=== PATIENT | female | born 1940 | race Caucasian/White ===

== ENCOUNTER 2016-05-12 21:36 | Inpatient (IN) | payer MEDICAID, OTHER ==
[~2016-05-12] VITALS: Ht 152.4 cm; Wt 49.9 kg
[~2016-05-12 21:36] MED LIST: AUGMENTIN 875 M1 TAB PO; FLORASTOR250 MG PO; LEVAQUIN250 MG PO; PREDNISONE20 MG PO
[2016-05-12 21:37] VITALS: BP 148/85
--- NOTE | 2016-05-12 22:45 | NUR ---
TO ER BED 6
--- NOTE | 2016-05-12 22:50 | NUR ---
75/F BIB FAMILY C/O BACK PAIN x TODAY. PT HAS CHRONIC COUGH 2 MONTHS. FAMILY AT BEDSIDE, NIUEAN SPEAKER. DENIES N/V/D; SKIN IS PINK/WARM/DRY; AAOX4 WITH EVEN AND STEADY GAIT; HR EVEN AND REGULAR; PT DENIES ANY FEVER, CP, SOB; PATIENT STATES PAIN OF 10/10 AT THIS TIME; VSS; PATIENT POSITIONED FOR COMFORT; HOB ELEVATED; BEDRAILS UP X2; BED DOWN. ER MD MADE AWARE OF PT STATUS.
--- NOTE | 2016-05-12 23:12 | NUR ---
Patient being evaluated by physician at bedside.
[2016-05-12] MEDS ORDERED: NACL 0.9% 1,000 ML IV ONE ×2 (23:28)
[2016-05-12] MEDS ORDERED: LEVOFLOXACIN 750 MG/D5W PREMIX 150 ML IV ONE (23:45)
--- NOTE | 2016-05-13 00:20 | NUR ---
Patient will be admitted to care of DR. ADAMS. Admited to TELE. Will go to room 119B. Belongings list completed. Report to TRISTAN GUTHRIE.
[2016-05-13] MEDS ORDERED: MORPHINE SULFATE 2 MG/ML SYR IVP PRN (00:25)
[2016-05-13] MEDS ORDERED: ACETAMINOPHEN 325 MG TAB PO PRN (00:25)
[2016-05-13] MEDS ORDERED: ONDANSETRON 4 MG/2 ML VIAL IVP PRN (00:25)
[2016-05-13 00:30] VITALS: BP 128/75
[2016-05-13] MEDS: NACL 0.9% 1,000 ML IV SCH ×2 (00:30→12:09)
[2016-05-13] MEDS ORDERED: ALBUTEROL 0.083% 2.5 MG/3 ML NEBU INH PRN (00:30)
--- NOTE | 2016-05-13 00:30 | NUR ---
Admitted from ER TO TELEMETRY UNIT , with chief complaint of BACK PAIN AND COUGH FOR TWO MONTHS , 75 y/o ,Female, Cooperative, A/OX4. RESPIRATION EVEN AND UNLABORED, WITH RHONCHI ON BILATERAL LUNG AUSCULTATION. PRODUCTIVE COUGHING, CLAIMED WITH YELLOW AND WHILE PHLEGM. HEAD TO TOE ASSESSMENT DONE WITH CHARGE NURSE ABIODUN, SKIN INTACT. PLAN OF CARE DISCUSSED WITH PATIENT AND FAMILY, VERBALIZED UNDERSTANDING. SAFETY MEASURES ENFORCED.WITH ON AND OFF BACK PAIN 07/11, WILL MEDICATE ORDERED.oriented to call light, bed, phone,television, bathroom, smoking policy,visiting hours, procedures, ID bracelet on. Belongings list checked.
[2016-05-13] MEDS: ALBUTEROL 0.083% 2.5 MG/3 ML NEBU INH SCH ×4 (01:00→19:17)
[2016-05-13] MEDS ORDERED: CLINDAMYCIN 600 MG in DEXTROSE 5% 50 ML IV SCH ×2 (01:30→06:00)
[2016-05-13] MEDS: HYDROcodone/APAP 7.5/325 MG 1 TAB PO PRN ×2 (01:50→14:54)
[2016-05-13] MEDS ORDERED: CLINDAMYCIN 600 MG/4 ML VIAL ONE ×2 (02:06→06:22)
--- NOTE | 2016-05-13 03:30 | NUR ---
APPLIED BILATERAL LEG SEQUENTIALS.
[2016-05-13 04:00] VITALS: BP 90/51
--- NOTE | 2016-05-13 04:25 | NUR ---
SPUTUM COUGH GIVEN WITH INSTRUCTION TO COUGH OUT PHLEGM FOR SPUTUM CULTURE TO BE SENT TO LAB. VERBALIZED UNDERSTANDING.
--- NOTE | 2016-05-13 07:15 | NUR ---
CONDITION REMAIN STABLE. NO SOB NOTED DURING SHIFT. SAFETY MAINTAINED. ENDORSED TO MIRIAM DICKSON FOR CONTINUITY OF CARE.
--- NOTE | 2016-05-13 07:17 | NUR ---
RECEIVED REPORT FROM NIGHT RN. PT RESTING IN BED. NO S/S OF ACUTE DISTRESS. AAOX4. PT DENIES PAIN. IV SITE PATENT AND INTACT. PT ON O2 2L NC. CALL LIGHT WITHIN REACH. SAFETY MEASURES ENSURED. RT AT BEDSIDE. WILL CONTINUE TO MONITOR.
[2016-05-13 07:50] VITALS: BP 95/54
--- NOTE | 2016-05-13 08:34 | NUR ---
PATIENT HAS BEEN SCREENED AND CATEGORIZED MODERATE NUTRITION RISK. PATIENT WILL BE SEEN WITHIN 3-5 DAYS OF ADMISSION. 05/15/16-05/17/[address]
[2016-05-13] MEDS ORDERED: FAMOTIDINE 20 MG TAB PO SCH (09:00)
[2016-05-13] MEDS: DOCUSATE SODIUM 100 MG GELCAP PO SCH (09:10)
[2016-05-13] MEDS: SACCHAROMYCES 250 MG CAP PO SCH ×2 (09:11→21:00)
--- NOTE | 2016-05-13 09:52 | NUR ---
PT RESTING IN BED. NO S/S OF ACUTE DISTRESS. PT DENIES PAIN. ON O2 2L NC. CALL LIGHT WITHIN REACH. SAFETY MEASURES ENSURED. WILL CONTINUE TO MONITOR.
[2016-05-13 12:00] VITALS: BP 100/56
[2016-05-13] MEDS: PIPER/TAZO 3.375GM/D5W PREMIX 50 ML IV SCH ×2 (12:11→20:32)
--- NOTE | 2016-05-13 12:18 | NUR ---
PT SITTING UP EATING. NO S/S OF ACUTE DISTRESS. PT DENIES PAIN. CALL LIGHT WITHIN REACH. SAFETY MEASURES ENSURED. WILL CONTINUE TO MONITOR.
--- NOTE | 2016-05-13 14:02 | NUR ---
PT RESTING IN BED. NO S/S OF ACUTE DISTRESS. PT DENIES PAIN/ FAMILY AT BEDSIDE. CALL LIGHT WITHIN REACH. WILL CONTINUE TO MONITOR.
[2016-05-13] MEDS ORDERED: MAG SULF 2000 MG/WATER PREMIX 50 ML IV SCH (15:00)
[2016-05-13 16:00] VITALS: BP 118/56
[2016-05-13] MEDS ORDERED: PANTOPRAZOLE 40 MG INJ VIAL IVP SCH (16:00)
--- NOTE | 2016-05-13 16:10 | NUR ---
PT RESTING IN BED. NO S/S OF ACUTE DISTRESS. PT DENIES PAIN. CALL LIGHT WITHIN REACH. WILL CONTINUE TO MONITOR.
--- NOTE | 2016-05-13 19:11 | NUR ---
ENDORSED PLAN OF CARE TO NIGHT RN. PT REMAINS IN STABLE CONDITION
--- NOTE | 2016-05-13 19:15 | NUR ---
RECEIVED REPORT FROM DAY RN AT BEDSIDE, PATIENT IS AAOX4, LATVIAN SPEAKING. PATIENT IS ON O2 AT 2L VIA NC, NO SOB NOTED AT THIS TIME. PATIENT HAS IV TO LAC PATENT INTACT AND ASYMPTOMATIC. WITH IVF INFUSING WELL. PATIENTS SKIN IS INTACT. DISCUSSED PLAN OF CARE WITH PATIENT, PATIENT VERBALIZED UNDERSTANDING. PATIENT ON TELE MONITOR, SAFETY MEASURES CHECKED, CALL LIGHT WITHIN REACH. WILL CONTINUE TO MONITOR.
[2016-05-13] MEDS: BUDESONIDE 0.25 MG/2 ML NEBU INH SCH (19:17)
[2016-05-13 20:00] VITALS: BP 98/52
--- NOTE | 2016-05-13 20:39 | NUR ---
PM IV ANTIBIOTIC ADMINISTERED, PO FLORASTOR HELD UNTIL ABD US OBTAINED. PATIENT RESTING IN BED WITH FAMILY AT BEDSIDE, NO SOB OR SIGN OF DISTRESS, CALL LIGHT WITHIN REACH. WILL CONTINUE TO MONITOR.
[2016-05-13] MEDS ORDERED: LEVOFLOXACIN 750 MG/D5W PREMIX 150 ML IV SCH (22:30)
--- NOTE | 2016-05-13 22:30 | NUR ---
PATIENT SLEEPING, NO SOB SIGN OF DISTRESS, CALL LIGHT WITHIN REACH. WILL CONTINUE TO MONITOR
[2016-05-14] VITALS: BP 104/56
--- NOTE | 2016-05-14 00:10 | NUR ---
VITAL SIGNS STABLE, PATIENT STATED SHE IS OKAY, NO SOB OR SIGN OF DISTRESS, CALL LIGHT WITHIN REACH, WILL CONTINUE TO MONITOR.
[2016-05-14] MEDS: NACL 0.9% 1,000 ML IV SCH ×3 (01:30→22:34)
[2016-05-14] MEDS: ALBUTEROL 0.083% 2.5 MG/3 ML NEBU INH SCH ×4 (01:49→19:23)
--- NOTE | 2016-05-14 02:30 | NUR ---
PATIENT SLEEPING, NO SOB OR SIGN OF DISTRESS, CALL LIGHT WITHIN REACH. WILL CONTINUE TO MONITOR.
[2016-05-14 04:00] VITALS: BP_SYST 105; BP_SYST 140; BP_DIAS 48; BP_DIAS 72
[2016-05-14] MEDS ORDERED: INFLUENZA VIRUS VACCINE QUAD 0.5 ML SYR IMVAC PRN (04:10)
[2016-05-14] MEDS: PIPER/TAZO 3.375GM/D5W PREMIX 50 ML IV SCH ×3 (04:22→20:13)
--- NOTE | 2016-05-14 04:30 | NUR ---
VITAL SIGNS STABLE, NO SOB OR SIGN OF DISTRESS, CALL LIGHT WITHIN REACH. WILL CONTINUE TO MONITOR.
--- NOTE | 2016-05-14 07:16 | NUR ---
ENDORSED PATIENT TO DAY RN AT BEDSIDE, PATIENT IN STABLE CONDITION.
--- NOTE | 2016-05-14 07:17 | NUR ---
PT ALERT AND ORIENTED X4, SLOVENIAN SPEAKING. BREATHING EVENLY AND UNLABORED, WITH O2 AT 2L/MIN VIA NC. NO SIGNS OF ACUTE DISTRESS. SKIN IS WARM AND DRY. NO SIGNS OF ANY BOWEL/BLADDER DISCOMFORT. DENIES OF ANY PAIN AT THIS TIME. ALL NEEDS ATTENDED. SAFETY PRECAUTIONS MAINTAINED. CALL LIGHT WITHIN REACH.
[2016-05-14] MEDS: BUDESONIDE 0.25 MG/2 ML NEBU INH SCH ×2 (07:20→19:24)
[2016-05-14 08:00] VITALS: BP 130/57
[2016-05-14] MEDS: DOCUSATE SODIUM 100 MG GELCAP PO SCH (08:42)
[2016-05-14] MEDS: SACCHAROMYCES 250 MG CAP PO SCH ×2 (08:42→20:15)
[2016-05-14] MEDS: PANTOPRAZOLE 40 MG INJ VIAL IVP SCH (08:42)
[2016-05-14] MEDS ORDERED: guaiFENesin DM 200/20 MG-10 ML 10 ML UDC PO PRN (11:25)
--- NOTE | 2016-05-14 11:34 | NUR ---
NEW ORDERS RECEIVED FROM DR. SHAFFER. NOTED AND CARRIED OUT.
[2016-05-14] MEDS ORDERED: MAGNESIUM CITRATE 300 ML BTL PO SCH (11:42)
[2016-05-14 12:00] VITALS: BP 121/92
[2016-05-14] MEDS: METHOCARBAMOL 500 MG TAB PO SCH ×3 (12:27→20:16)
[2016-05-14] MEDS ORDERED: METHOCARBAMOL 500 MG TAB PO SCH (13:00)
--- NOTE | 2016-05-14 13:00 | NUR ---
P.T. NOTES RECEIVED P.T. EVAL ORDER, CHART REVIEWED AND RN CLEARED HER FOR THE P.T. EVALUATION. PATIENT SEEN INITIALLY AT HER BEDSIDE EATING, RETURNED AFTER HALF AN HOUR AND DID SOME GAIT TRAINING ACTIVITIES ALONG THE HALLWAY THEN REQUESTED TO USE THE BATHROOM AND WAS ASSISTED. PATIENT WAS THEN LEFT UNDER THE CARE OF THE STAFF. CHECKED P.T. LOG AND WAS NOTED THAT P.T. ORDER IS CANCELLED. PAGED DR. SHAFFER TO CLARIFY BUT HAS NOT RETURNED CALL YET. (PVEX2).
[2016-05-14 16:00] VITALS: BP 106/65
--- NOTE | 2016-05-14 17:54 | NUR ---
DR GUERRERO AWARE OF CURRENT LABS, K-3.4. AWARE. CONTINUE TO MONITOR.
--- NOTE | 2016-05-14 18:52 | NUR ---
PT ALERT AND RESPONSIVE, NO SIGNS OF ACUTE DISTRESS. ENDORSED TO ONCOMING ROOF FITTER NURSE FOR CONTINUITY OF CARE.
--- NOTE | 2016-05-14 19:28 | NUR ---
RECEIVED REPORT FROM ABRAHAM RN, AT BEDSIDE. INITIAL ASSESSMENT AND BODY CHECK DONE. PATIENT AAO X 4, ABLE TO FOLLOW COMMAND AND MAKE NEEDS KNOWN AND AMBULATORY WITH ALTERATION MANAGER. PATIENT CURRENTLY LYING DOWN ON THE BED AND TALKING TO FAMILY. NO S/S OF DISTRESS OR SOB NOTED. DENIED OF ANY PAIN/DISCOMFORT AT THIS TIME. SKIN WARM/DRY TO TOUCH WITH NORMAL COLOR AND INTACT. DISCUSSED PLAN OF CARE, PAIN MANAGEMENT AND MEDICATION REGIMEN WITH PATIENT AND PATIENT VERBALIZED UNDERSTANDING. PLACED PATIENT ON SAFETY/FALL PRECAUTIONS AND WILL CONTINUE TO MONITOR. CALL LIGHT LEFT WITHIN REACH.
[2016-05-14 19:45] VITALS: BP 119/60
--- NOTE | 2016-05-14 21:46 | NUR ---
ADMINISTERED DUE MEDICATIONS MD'S ORDERED WITH EDUCATION GIVEN. PATIENT COMPLYING WITH MEDICATIONS AND TOLERATED WELL. KEPT PATIENT IN COMFORTABLE POSITION/WARM AND WILL CONTINUE TO MONITOR.
[2016-05-15] VITALS (7 sets, daily range): BP systolic 103–131; BP diastolic 44–77
--- NOTE | 2016-05-15 00:32 | NUR ---
PATIENT RESTED COMFORTABLY IN BED AND REMAINED IN STABLE CONDITION. NO APPARENT DISTRESS NOR ANY COMPLAIN MADE. WILL CONTINUE TO MONITOR.
[2016-05-15] MEDS: ALBUTEROL 0.083% 2.5 MG/3 ML NEBU INH SCH ×4 (01:21→19:24)
--- NOTE | 2016-05-15 03:00 | NUR ---
ROUNDS MADE, SEEN PATIENT ASLEEP QUIETLY IN BED WITH EVEN AND UNLABORED RESPIRATORY RATE. NO CHANGE IN CONDITION NOTED. WILL CONTINUE TO MONITOR.
[2016-05-15] MEDS: HYDROcodone/APAP 7.5/325 MG 1 TAB PO PRN ×2 (04:40→19:49)
[2016-05-15] MEDS: PIPER/TAZO 3.375GM/D5W PREMIX 50 ML IV SCH ×3 (04:41→20:06)
--- NOTE | 2016-05-15 04:50 | NUR ---
AFTER AM CARE WAS GIVEN, PATIENT C/O MODERATE ABDOMINAL PAIN. ADMINISTERED PRN NORCO AND KEPT PATIENT IN COMFORTABLE POSITION/WARM. WILL CONTINUE TO MONITOR FOR EFFECTIVENESS.
--- NOTE | 2016-05-15 07:30 | NUR ---
ENDORSED PLAN OF CARE TO MIRIAM ROSARIO, AT BEDSIDE. PATIENT RESTED WELL THROUGHOUT THE SHIFT AND REMAINED IN STABLE CONDITION WITHOUT DISTRESS NOTED.
--- NOTE | 2016-05-15 07:31 | NUR ---
PT ALERT AND ORIENTED X4, UPPER SORBIAN SPEAKING. BREATHING EVENLY AND UNLABORED, NO SIGNS OF ACUTE DISTRESS. SKIN IS WARM AND DRY. NO SIGNS OF ANY BOWEL/BLADDER DISCOMFORT. DENIES OF ANY PAIN AT THIS TIME. ALL NEEDS ATTENDED. SAFETY PRECAUTIONS MAINTAINED. CALL LIGHT WITHIN REACH.
[2016-05-15] MEDS: BUDESONIDE 0.25 MG/2 ML NEBU INH SCH ×2 (08:07→19:24)
[2016-05-15] MEDS: DOCUSATE SODIUM 100 MG GELCAP PO SCH (08:57)
[2016-05-15] MEDS: METHOCARBAMOL 500 MG TAB PO SCH ×4 (08:58→20:05)
[2016-05-15] MEDS: PANTOPRAZOLE 40 MG INJ VIAL IVP SCH (08:58)
[2016-05-15] MEDS: SACCHAROMYCES 250 MG CAP PO SCH ×2 (09:04→20:05)
[2016-05-15] MEDS ORDERED: HYDRAGUARD CREAM TP PRN (09:50)
--- NOTE | 2016-05-15 09:52 | NUR ---
PT. C/O PERIANAL RASH. MADE AWARE, RECEIVED ORDER TO APPLY HYDRAGUARD NEEDED. NOTED AND CARRIED OUT.
[2016-05-15] MEDS ORDERED: INSULIN ASPART SLIDING SCALE 100 UNITS/ML VIAL SUBQ PRN (13:45)
--- NOTE | 2016-05-15 13:52 | NUR ---
RECEIVED NEW ORDERS FROM DR. GUERRERO. NOTED AND CARRIED OUT.
[2016-05-15] MEDS: NACL 0.9% 1,000 ML IV SCH ×2 (16:23→20:10)
[2016-05-15] MEDS: BLOOD GLUCOSE MONITORING 1 DEV DEV FS SCH ×2 (16:24→19:51)
--- NOTE | 2016-05-15 19:11 | NUR ---
PT ALERT AND RESPONSIVE, NO SIGNS OF ACUTE DISTRESS, ENDORSED TO ONCOMING ENROLLED NURSE NURSE FOR CONTINUITY OF CARE.
--- NOTE | 2016-05-15 19:23 | NUR ---
RECEIVED REPORT FROM MIRIAM ROSARIO, AT BEDSIDE. INITIAL ASSESSMENT AND BODY CHECK DONE. PATIENT AAO X 4, ABLE TO FOLLOW COMMAND AND MAKE NEEDS KNOWN AND AMBULATORY WITH CAGE MANAGER. PATIENT CURRENTLY SITING UP ON THE BED AND TALKING TO FAMILY. V/S REMAINED WNL AND NO S/S OF DISTRESS OR SOB NOTED. PATIENT C/O LOWER BACK PAIN, 6/10, AT THIS TIME. SKIN INTACT WITH PERINEAL REDNESS. PER PATIENT, THE REDNESS CAUSED BY HAVING SEVERAL BOWEL MOVEMENTS TODAY. DISCUSSED PLAN OF CARE, PAIN MANAGEMENT AND MEDICATION REGIMEN WITH PATIENT/FAMILY AND BOTH VERBALIZED UNDERSTANDING. PLACED PATIENT ON SAFETY/FALL PRECAUTIONS AND WILL CONTINUE TO MONITOR. CALL LIGHT LEFT WITHIN REACH.
--- NOTE | 2016-05-15 21:29 | NUR ---
ADMINISTERED DUE AND PAIN MEDICATIONS MD'S ORDERED WITH EDUCATION GIVEN. PATIENT COMPLYING WITH MEDICATIONS AND STATED WITH SOME PAIN RELIEF AFTER POST-MEDICATION. STARR NEEDS ARE ATTENDED. KEPT PATIENT IN COMFORTABLE POSITION/WARM AND WILL CONTINUE TO MONITOR.
--- NOTE | 2016-05-16 00:57 | NUR ---
PATIENT RESTED WELL ON THE BED AND REMAINED IN STABLE CONDITION. NO APPARENT DISTRESS NOR ANY COMPLAINT MADE. WILL CONTINUE TO MONITOR.
[2016-05-16] MEDS: ALBUTEROL 0.083% 2.5 MG/3 ML NEBU INH SCH ×4 (01:20→19:15)
--- NOTE | 2016-05-16 03:50 | NUR ---
PATIENT IS CLINICALLY STABLE WITH UNCHANGED V/S. NO S/S OF DISTRESS NOR ANY POTENTIAL COMPLICATION NOTED. WILL CONTINUE TO MONITOR.
[2016-05-16 04:00] VITALS: BP 107/60
[2016-05-16] MEDS: PIPER/TAZO 3.375GM/D5W PREMIX 50 ML IV SCH ×3 (04:04→21:42)
[2016-05-16] MEDS: BLOOD GLUCOSE MONITORING 1 DEV DEV FS SCH ×4 (06:47→21:00)
--- NOTE | 2016-05-16 07:19 | NUR ---
PATIENT RESTED WELL THROUGHOUT THE SHIFT AND REMAINED IN STABLE CONDITION WITHOUT S/S OF DISTRESS. ENDORSED PLAN OF CARE TO MIRIAM GUEVARA, AT BEDSIDE.
--- NOTE | 2016-05-16 07:20 | NUR ---
RECEIVED REPORT FROM THE MUSIC EDUCATION ADJUNCT PROFESSOR NURSE AT BEDSIDE. PT IS AWAKE AND ALERT. [place] ISLANDER SPEAKING. I INTRODUCED MYSELF AND UPDATED THE BOARD. PT DOES NOT HAVE HER NC ON AT THIS TIME. NOTED THE IV ON L AC 20G NS RUNNING AT 80ML. WILL BE BACK TO CONTINUE ASSESSING PT. ALL SAFETY MEASURES IN PLACE.
[2016-05-16] MEDS: BUDESONIDE 0.25 MG/2 ML NEBU INH SCH ×2 (07:33→19:15)
[2016-05-16 08:00] VITALS: BP 127/72
--- NOTE | 2016-05-16 08:05 | NUR ---
ALL V/S WITHIN NORMAL LIMITS. PT IS AMBULATING IN THE ROOM. NOTED THAT THE IV IS DISLODGED. WILL BE BACK TO START A NEW IV. CALL LIGHT WITHIN REACH.
[2016-05-16] MEDS: DOCUSATE SODIUM 100 MG GELCAP PO SCH (09:00)
--- NOTE | 2016-05-16 09:35 | NUR ---
RESTARTED A NEW IV ON THE L HAND 22G. PT TOLERATED WELL. ADMINISTERED ALL MORNING MEDS. HELD THE COLACE D/T LOOSE STOOL THIS MORNING. INFUSING NS AT 80ML ORDERED. IV INTACT AND PATENT. WILL CONTINUE TO MONITOR PT.
[2016-05-16] MEDS: SACCHAROMYCES 250 MG CAP PO SCH ×2 (09:37→21:44)
[2016-05-16] MEDS: HYDROcodone/APAP 7.5/325 MG 1 TAB PO PRN ×3 (09:37→19:05)
[2016-05-16] MEDS: METHOCARBAMOL 500 MG TAB PO SCH ×4 (09:37→22:01)
[2016-05-16] MEDS: PANTOPRAZOLE 40 MG INJ VIAL IVP SCH (09:37)
--- NOTE | 2016-05-16 10:38 | NUR ---
PT RESTING COMFORTABLY IN BED. PT IS WATCHING TV. NO SIGNS OF DISTRESS. NO COMPLAINTS AT THIS TIME. WILL CONTINUE TO MONITOR PT.
[2016-05-16] MEDS: NACL 0.9% 1,000 ML IV SCH (11:08)
--- NOTE | 2016-05-16 11:20 | NUR ---
PT IS SLEEPING. NOTED THAT THE IV BAG IS LOW. I REPLACED WITH A NEW BAG. PT IS SLEEPING SOUNDLY. ALL SAFETY MEASURE IN PLACE. WILL CONTINUE TO CHECK ON PT.
--- NOTE | 2016-05-16 11:31 | NUR ---
NOTIFIED DR. CARO REGARDING LOW MAG AT 1.8
[2016-05-16 12:00] VITALS: BP 122/71
--- NOTE | 2016-05-16 12:40 | NUR ---
PT JUST FINISHED ALL HER LUNCH. WHILE I WAS PREPARING HER AFTERNOON MEDS, SHE VOMITED ALL OVER THE FLOOR SHE WAS TRYING TO GO TO THE BATHROOM. SHE STATED SHE FEELS BETTER NOW. SHE WAS ABLE TO TOLERATE AFTERNOON MEDS.
--- NOTE | 2016-05-16 13:17 | NUR ---
PT IS RESTING IN BED. NO SIGNS OF DISTRESS. NO COMPLAINTS. WILL CONTINUE TO MONITOR PT.
[2016-05-16] MEDS ORDERED: MAG SULF 2000 MG/WATER PREMIX 50 ML IV SCH (14:00)
--- NOTE | 2016-05-16 14:00 | NUR ---
PT'S MAG LEVEL IS AT 1.8. ORDERED MAG RIDER. HUNG IT. PT TOLERATING WELL. WILL CONTINUE TO MONITOR.
--- NOTE | 2016-05-16 14:23 | NUR ---
PT HAS NOT BEEN WEARING HER NC ALL MORNING AND AFTERNOON. PT IS SATURATING AT 93-94%.
--- NOTE | 2016-05-16 14:45 | NUR ---
LAB CALLED AND GAVE RESULTS OF THE BLOOD CULTURE THAT WAS REQUESTED ON 05/10. GRAM POSITIVE RODS. NOTIFIED DR. CARO. HE WAS AWARE. HE STATED HE REQUESTED A REPEAT.
[2016-05-16 16:00] VITALS: BP 106/52
--- NOTE | 2016-05-16 16:00 | NUR ---
PT IS RESTING COMFORTABLY. NO COMPLAINTS AT THIS TIME. WILL CONTINUE TO MONITOR PT.
--- NOTE | 2016-05-16 18:00 | NUR ---
PT IS EATING DINNER. VOMITED AGAIN. PT CONTINUE TO FINISH DINNER. I ASKED IF SHE WAS OK. SHE SAID SHE IS FINE. NO ABDOMINAL PAIN. NO COMPLAINTS. NO NAUSEA. WILL CONTINUE TO MONITOR PT.
--- NOTE | 2016-05-16 19:25 | NUR ---
ENDORSED PT TO THE BAKERY SALES CLERK NURSE AT BEDSIDE FOR CONTINUITY OF CARE. PT IS STABLE.
--- NOTE | 2016-05-16 19:27 | NUR ---
RECEIVED PT FROM PAOLA VALENZUELA RN PT CITIZEN OF [place] SPEAKER AAOX4 AMBULATORY ON TELEMETRY SR RELATIVES AT BED SIDE INITIAL ASSESSMENT DONE
[2016-05-16 20:00] VITALS: BP 144/73
[2016-05-16] MEDS ORDERED: PNEUMOCOCCAL VACCINE 23 MCG/0.5 ML VIAL IMVAC SCH (21:00)
--- NOTE | 2016-05-16 22:00 | NUR ---
BLOOD SUGAR TEST 103 NOT COVERAGE PT REMAIN STABLE
[2016-05-17] VITALS: BP 116/63
[2016-05-17] MEDS: ALBUTEROL 0.083% 2.5 MG/3 ML NEBU INH SCH ×3 (00:59→13:00)
--- NOTE | 2016-05-17 01:00 | NUR ---
REVIEWED SUPPLEMENTAL OXYGEN STATUS WITH SAVANAH/RN PATIENT WEANING OFF OXYGEN FOR POSSIBLE DISCHARGE HOME TODAY
--- NOTE | 2016-05-17 01:57 | NUR ---
PT SLEEPING WELL NOT DISTRESS NOTED ON TELEMETRY SR
[2016-05-17 04:00] VITALS: BP 102/53
--- NOTE | 2016-05-17 04:00 | NUR ---
SPONGE BATH GIVEN LINEN CHANGED NOT DISTRESS NOTED ON TELE SR
[2016-05-17] MEDS: PIPER/TAZO 3.375GM/D5W PREMIX 50 ML IV SCH ×2 (04:56→12:22)
[2016-05-17] MEDS: NACL 0.9% 1,000 ML IV SCH (04:56)
[2016-05-17] MEDS: BLOOD GLUCOSE MONITORING 1 DEV DEV FS SCH ×2 (06:41→12:22)
--- NOTE | 2016-05-17 06:41 | NUR ---
PT REMAIN STABLE NOT FEVER, NOT DISTRESS NOTED BLOOD SUGAR TEST 76
[2016-05-17] MEDS: BUDESONIDE 0.25 MG/2 ML NEBU INH SCH (07:06)
--- NOTE | 2016-05-17 07:15 | NUR ---
RECEIVED REPORT FROM FOIL OPERATOR NURSE. PT SITTING UP AT THE BEDSIDE, AAOX4, DENIES PAIN/DISCOMFORT AT THIS TIME. SKIN IS DRY AND INTACT. IV IS PATENT AND FLOWING. PT IS ON ROOM AIR, VITAL STABLE. WILL CONTINUE TO MONITOR.
[2016-05-17 08:00] VITALS: BP 127/71
[2016-05-17] MEDS: PANTOPRAZOLE 40 MG INJ VIAL IVP SCH (08:28)
[2016-05-17] MEDS: DOCUSATE SODIUM 100 MG GELCAP PO SCH (08:29)
[2016-05-17] MEDS: METHOCARBAMOL 500 MG TAB PO SCH ×2 (08:29→12:28)
[2016-05-17] MEDS: SACCHAROMYCES 250 MG CAP PO SCH (08:30)
--- NOTE | 2016-05-17 08:34 | NUR ---
PT MARIE MEDS WELL.
[2016-05-17] MEDS ORDERED: ASPIRIN 81 MG TAB.CHEW PO SCH (09:00)
--- NOTE | 2016-05-17 10:17 | NUR ---
ALL NEEDS MET AT THIS TIME.
[2016-05-17 12:00] VITALS: BP 134/67
--- NOTE | 2016-05-17 12:52 | NUR ---
VITAL SIGNS REMAIN STABLE. WILL CONTINUE TO MONITOR.
[2016-05-17] MEDS ORDERED: LEVAQUIN750 MG PO (14:31)
[2016-05-17] MEDS ORDERED: CLEOCIN HCL300 MG PO (14:31)
[2016-05-17] MEDS ORDERED: PROVENTIL2.5 MG/3 M INH (14:31)
[2016-05-17] MEDS ORDERED: FLORASTOR 33 MG1 CAP PO (14:31)
[2016-05-17] MEDS ORDERED: ROBITUSSIN/DEXT10 ML PO (14:31)
--- NOTE | 2016-05-17 15:45 | NUR ---
D/C ORDER IN. MIRIAM DEL ROSARIO INTERPRETED D/C INSTRUCTIONS. PT UNABLE TO SIGN D/C PAPERWORK. INSTRUCTIONS GIVEN TO PT, PT VERBALIZED UNDERSTANDING. PRESCRIPTIONS IN PT'S POSSESSION. IV REMOVED WITH CANNULA INTACT. WRISTBAND REMOVED. WHEELED PT OUT OF HOSPITAL, ACCOMPANIED BY FAMILY MEMBER, BRENDA IN STABLE CONDITION.
[2016-05-17] MEDS ORDERED: SIMVASTATIN 20 MG TAB PO SCH (21:00)
== END 2016-05-17 15:45 | disposition home or self-care (01) | DRG 720 ==
LOC: MED 21:36 → MTU 05-13 00:04
PROVIDERS: ADMIT Family Medicine; ATTEND Family Medicine
DX: A41.9 Sepsis, unspecified organism (principal); N17.0 Acute kidney failure with tubular necrosis; J96.01 Acute respiratory failure with hypoxia; J69.0 Pneumonitis due to inhalation of food and vomit; N39.0 Urinary tract infection, site not specified; R65.20 Severe sepsis without septic shock; E83.42 Hypomagnesemia; E11.65 Type 2 diabetes mellitus with hyperglycemia; K21.9 Gastro-esophageal reflux disease without esophagitis; G89.29 Other chronic pain; I10 Essential (primary) hypertension; J44.0 Chronic obstructive pulmonary disease with (acute) lower respiratory infection; E87.8 Other disorders of electrolyte and fluid balance, not elsewhere classified; E87.6 Hypokalemia; E83.51 Hypocalcemia; D64.9 Anemia, unspecified; M54.5 Low back pain; Z90.49 Acquired absence of other specified parts of digestive tract

== ENCOUNTER 2017-10-05 16:40 | Emergency (ER) | payer MEDICAID ==
[~2017-10-05] VITALS: Ht 157.5 cm; Wt 68.0 kg
[~2017-10-05 16:40] MED LIST changes: -AUGMENTIN 875 M1 TAB PO; +CLIN300C2 PO; -FLORASTOR250 MG PO; -LEVAQUIN250 MG PO; +LEVO750T2 PO; +PRED20TA5 PO; -PREDNISONE20 MG PO; +PRON INH; +ROBDM PO; +SACC250C1 PO
[2017-10-05 16:42] VITALS: BP 150/91
--- NOTE | 2017-10-05 16:55 | NUR ---
PT BIB FAMILY FOR C/O LOWER ABD PAIN , LOWER BACK PAIN & PAINFUL URIANTION FOR 6 DAYS, DENIES FEVER/CHILL/N/V. HX: ASTHMA. DENIES N/V/D; SKIN IS PINK/WARM/DRY; AAOX4 WITH EVEN AND STEADY GAIT; LUNGS CLEAR BL; PT DENIES ANY FEVER, CP, SOB, OR COUGH AT THIS TIME; PATIENT STATES PAIN OF 10/10 AT THIS TIME; PATIENT POSITIONED FOR COMFORT; HOB ELEVATED; BEDRAILS UP X2; BED DOWN. ER MD MADE AWARE OF PT STATUS.
--- NOTE | 2017-10-05 16:58 | NUR ---
Patient being evaluated by DR Ahmadi at bedside.
[2017-10-05] MEDS ORDERED: cefTRIAXone 1,000 MG in LIDOCAINE 1% ***ER ONLY *** 2.1 ML IM ONE (17:00)
[2017-10-05] MEDS ORDERED: KETOROLAC 30 MG/ML VIAL IM ONE (17:00)
[2017-10-05] MEDS ORDERED: cefTRIAXone 1,000 MG VIAL ONE (17:11)
[2017-10-05] MEDS ORDERED: LIDOCAINE MPF 1% - **ER/OR** 5 ML ONE (17:12)
--- NOTE | 2017-10-05 17:12 | NUR ---
PT TAKEN TO CT VIA G[facility]ILA, ACCOMPANIED BY HOSPITAL FOOD SERVICE WORKER.
[2017-10-05 17:24] LABS: APPEARANCE,URINE SL CLOUDY (CLEAR); BILIRUBIN,URINE NEGATIVE (NEGATIVE); BLOOD, URINE TRACE-L (NEGATIVE); COLOR,URINE YELLOW (YELLOW); LEUKOCYTE ESTERASE ,URINE NEGATIVE (NEGATIVE); NITRITE, URINE POSITIVE (NEGATIVE); UGLUCOSE NEGATIVE (NEGATIVE)
[2017-10-05 18:16] LABS: RBC,URINE 0-5 (RARE) /HPF (0-5); WBC,URINE 0-5 (RARE) /HPF (0-5)
[2017-10-05 18:29] VITALS: BP 114/73
--- NOTE | 2017-10-05 18:29 | NUR ---
Patient discharged with v/s stable. Written and verbal after care instructions given and explained. Patient alert, oriented and verbalized understanding of instructions. Ambulatory with steady gait. All questions addressed prior to discharge. ID band removed. Patient advised to follow up with PMD. Rx of LEVAQUIN& TRAMADOL given. Patient educated on indication of medication including possible reaction and side effects. Opportunity to ask questions provided and answered.
== END 2017-10-05 18:29 | disposition home or self-care (01) ==
LOC: MED 16:40
DX: N39.0 Urinary tract infection, site not specified (principal); J45.909 Unspecified asthma, uncomplicated; I10 Essential (primary) hypertension; Z79.899 Other long term (current) drug therapy
CPT/HCPCS: 74176; 81001; 96372; 99285; J0696; J1885; J2001

== ENCOUNTER 2017-10-09 08:41 | Emergency (ER) | payer MEDICAID ==
[~2017-10-09] VITALS: Ht 144.8 cm; Wt 57.2 kg
[2017-10-09 09:09] VITALS: BP 138/78
[2017-10-09 10:22] LABS: APPEARANCE,URINE CLEAR (CLEAR); BILIRUBIN,URINE NEGATIVE (NEGATIVE); BLOOD, URINE TRACE-I (NEGATIVE); COLOR,URINE YELLOW (YELLOW); LEUKOCYTE ESTERASE ,URINE NEGATIVE (NEGATIVE); NITRITE, URINE NEGATIVE (NEGATIVE); UGLUCOSE NEGATIVE (NEGATIVE)
[2017-10-09 10:25] VITALS: BP 135/76
[2017-10-09 10:31] LABS: RBC,URINE 0-5 (RARE) /HPF (0-5); WBC,URINE 0-5 (RARE) /HPF (0-5)
== END 2017-10-09 10:26 | disposition home or self-care (01) ==
LOC: MED 08:41
DX: N39.0 Urinary tract infection, site not specified (principal); J45.909 Unspecified asthma, uncomplicated; I10 Essential (primary) hypertension; Z79.899 Other long term (current) drug therapy
CPT/HCPCS: 81001; 87086; 99284

== ENCOUNTER 2017-11-14 12:44 | Emergency (ER) | payer MEDICAID ==
[~2017-11-14] VITALS: Ht 144.8 cm; Wt 56.2 kg
[2017-11-14 12:56] VITALS: BP 136/79
--- NOTE | 2017-11-14 13:10 | NUR ---
PT AMBULATED TO RM 4 WITH STEADY GAIT
--- NOTE | 2017-11-14 13:15 | NUR ---
77f bib daughter with c/o dysuria x 2 months. Pt prescriped Nitrofur-Mac and finished it. Pt denies any hematuria, abd pain, or n/v/d. Pt is aox4 to person, place, time, and situation. RR are even and unlabored. Pt positioned to comfort. Awaiting er md alonso. Will continue to monitor.
[2017-11-14 13:27] LABS: APPEARANCE,URINE CLEAR (CLEAR); BILIRUBIN,URINE NEGATIVE (NEGATIVE); BLOOD, URINE TRACE-I (NEGATIVE); COLOR,URINE YELLOW (YELLOW); LEUKOCYTE ESTERASE ,URINE TRACE (NEGATIVE); NITRITE, URINE NEGATIVE (NEGATIVE); UGLUCOSE NEGATIVE (NEGATIVE)
[2017-11-14 14:49] LABS: RBC,URINE 0-5 (RARE) /HPF (0-5); WBC,URINE 0-5 (RARE) /HPF (0-5)
[2017-11-14] MEDS ORDERED: cefTRIAXone 1,000 MG in LIDOCAINE MPF 1% - 5 mL VIAL 2.1 ML IM ONE (15:15)
[2017-11-14] MEDS ORDERED: PHENAZOPYRIDINE 100 MG TAB PO ONE (15:15)
--- NOTE | 2017-11-14 15:30 | NUR ---
Patient refused medication; States she waited too long and wants the "medication to go"
[2017-11-14 15:39] VITALS: BP 132/73
== END 2017-11-14 15:38 | disposition home or self-care (01) ==
LOC: MED 12:44
DX: N39.0 Urinary tract infection, site not specified (principal); J45.909 Unspecified asthma, uncomplicated; I10 Essential (primary) hypertension; Z79.899 Other long term (current) drug therapy
CPT/HCPCS: 81001; 99283

== ENCOUNTER 2023-06-14 14:11 | Inpatient (IN) | payer MEDICAID ==
[~2023-06-14] VITALS: Ht 139.7 cm; Wt 64.4 kg
[2023-06-14 14:47] VITALS: BP 130/73; PULSE 109; RESP 18; TEMP 98; O2SAT 91
[2023-06-14 15:05] VITALS: O2SAT 95
[2023-06-14] MEDS: IPRATROPIUM 0.02% 0.5 MG/2.5 ML NEBU INH ONE (15:21)
[2023-06-14 15:22] VITALS: PULSE 105; RESP 28; O2SAT 96
[2023-06-14] MEDS: ALBUTEROL 0.083% 2.5 MG/3 ML NEBU INH ONE (15:22)
[2023-06-14] MEDS: NACL 0.9% 1,000 ML IV ONE (15:39)
[2023-06-14 15:49] LABS: FLU A ANTIGEN negative (NEGATIVE); FLU B ANTIGEN NEGATIVE (NEGATIVE)
[2023-06-14] MEDS: methylPREDNISolone SS 125 MG/2 ML VIAL IVP ONE (15:52)
[2023-06-14 16:09] LABS: BASOPHILS # (AUTO) 0.1 K/uL (0.00-0.22); BASOPHILS % (AUTO) 0.5 % (0.0-2.0); EOSINOPHILS # (AUTO) 0.1 K/uL (0-0.4); EOSINOPHILS % (AUTO) 0.4 % (0.0-4.0); HEMATOCRIT 43.3 % (36-48); HEMOGLOBIN 14.4 g/dL (12.0-16.0); LYMPHOCYTES % (AUTO) 22.8 % (20.5-51.1); MEAN CORPUSCULAR HEMOGLOBIN 30 pg (27-31); MEAN CORPUSCULAR HGB CONC 33 g/dL (33-37); MEAN CORPUSCULAR VOLUME 89.6 fL (80-94); MONOCYTES % (AUTO) 7.7 % (1.7-9.3); NEUTROPHILS # (AUTO) 9.2 K/uL (1.8-7.7); NEUTROPHILS % (AUTO) 68.6 % (42.2-75.2); PLATELET COUNT (AUTO) 304 K/uL (140-450); RED BLOOD CELL COUNT(AUTO) 4.83 MIL/uL (4.20-5.40); RED CELL DISTRIBUTION WIDTH 13.9 % (11.6-13.7); WHITE BLOOD COUNT (AUTO) 13.4 K/uL (4.8-10.8)
[2023-06-14 16:24] LABS: ANION GAP 9.8 (8-16); CALCIUM 9.7 mg/dL (8.5-10.1); CARBON DIOXIDE 30.1 mmol/L (21-32); CHLORIDE 102 mmol/L (98-107); CREATININE 0.6 mg/dL (0.6-1.3); GLUCOSE 255 mg/dL (74-106); POTASSIUM 3.9 mmol/L (3.5-5.1); SODIUM SERUM 138 mmol/L (136-145); UREA NITROGEN, BLOOD 11 mg/dL (7-18)
[2023-06-14 16:33] LABS: LACTIC ACID 1.2 mmol/L (0.4-2.0)
[2023-06-14 17:04] LABS: APPEARANCE,URINE CLEAR (CLEAR); BILIRUBIN,URINE NEGATIVE (NEGATIVE); BLOOD, URINE TRACE-I (NEGATIVE); COLOR,URINE YELLOW (YELLOW); LEUKOCYTE ESTERASE ,URINE NEGATIVE (NEGATIVE); NITRITE, URINE NEGATIVE (NEGATIVE); PH,URINE 5.5 (5.0-9.0); PROTEIN,URINE NEGATIVE (NEGATIVE); UGLUCOSE 1+ (NEGATIVE); UROBILINOGEN,URINE 0.2 EU/dL (0.2 - 1)
[2023-06-14] MEDS ORDERED: MELATONIN 3 MG TAB PO PRN (17:35)
[2023-06-14] MEDS ORDERED: ONDANSETRON 4 MG/2 ML VIAL IVP PRN (17:35)
[2023-06-14] MEDS ORDERED: MORPHINE SULFATE 2 MG/ML SYR IVP PRN (17:35)
[2023-06-14] MEDS ORDERED: ALBUTEROL 0.083% 2.5 MG/3 ML NEBU INH PRN (17:35)
[2023-06-14] MEDS ORDERED: ACETAMINOPHEN 325 MG TAB PO PRN (17:35)
[2023-06-14] MEDS ORDERED: POTASSIUM CHLORIDE 10 MEQ TABER PO PRN (17:35)
[2023-06-14] MEDS ORDERED: cefTRIAXone 1,000 MG VIAL ONE (18:11)
[2023-06-14 18:18] LABS: ALANINE AMINOTRANSFERASE 56 U/L (12-78); ALBUMIN 2.9 g/dL (3.4-5.0); ALKALINE PHOSPHATASE 197 U/L (50-136); ASPARTATE AMINOTRANSFERASE 50 U/L (15-37); BILIRUBIN,DIRECT 0.1 mg/dL (0.0-0.3); CREATINE KINASE, TOTAL 35 U/L (26-192); TOTAL BILIRUBIN 0.4 mg/dL (0.0-1.0); TOTAL PROTEIN, SERUM 7.6 g/dL (6.4-8.2)
[2023-06-14 18:31] LABS: RBC,URINE 0-5 /HPF (0-5); WBC,URINE 0-5 /HPF (0-5)
[2023-06-14 18:32] LABS: BACTERIA,URINE 1+ /HPF (None Seen); MUCUS,URINE None Seen /LPF (None Seen); SQUAMOUS EPITHELIAL CELL,UR 0-3 (FEW) /LPF (0-3 (FEW))
[2023-06-14] MEDS ORDERED: AZITHROMYCIN 500 MG INJ VIAL IV ONE (19:06)
[2023-06-14] MEDS: AZITHROMYCIN 500 MG in DEXTROSE 5% 250 ML IV ONE (19:27)
[2023-06-14] MEDS: methylPREDNISolone SS 40 MG/ML VIAL IVP SCH (23:08)
[2023-06-15] VITALS (11 sets, daily range): BP systolic 132–140; BP diastolic 69–77; PULSE 70–97; RESP 16–24; TEMP 96.1–98.5; O2SAT 93–100
[2023-06-15 06:48] LABS: BASOPHILS % (AUTO) 0.1 % (0.0-2.0); HEMATOCRIT 42.1 % (36-48); HEMOGLOBIN 13.9 g/dL (12.0-16.0); LYMPHOCYTES # (AUTO) 0.8 K/uL (2.5-16.5); MEAN CORPUSCULAR HEMOGLOBIN 30 pg (27-31); MEAN CORPUSCULAR HGB CONC 33 g/dL (33-37); MEAN CORPUSCULAR VOLUME 90.4 fL (80-94); MONOCYTES # (AUTO) 0.2 K/uL (0.8-1.0); MONOCYTES % (AUTO) 1.4 % (1.7-9.3); NEUTROPHILS # (AUTO) 9.5 K/uL (1.8-7.7); NEUTROPHILS % (AUTO) 90.5 % (42.2-75.2); PLATELET COUNT (AUTO) 320 K/uL (140-450); RED BLOOD CELL COUNT(AUTO) 4.66 MIL/uL (4.20-5.40); RED CELL DISTRIBUTION WIDTH 13.9 % (11.6-13.7); WHITE BLOOD COUNT (AUTO) 10.5 K/uL (4.8-10.8)
[2023-06-15 07:01] LABS: ALANINE AMINOTRANSFERASE 55 U/L (12-78); ALBUMIN 2.8 g/dL (3.4-5.0); ALKALINE PHOSPHATASE 198 U/L (50-136); ANION GAP 11.7 (8-16); ASPARTATE AMINOTRANSFERASE 36 U/L (15-37); CALCIUM 9.8 mg/dL (8.5-10.1); CARBON DIOXIDE 30.4 mmol/L (21-32); CHLORIDE 103 mmol/L (98-107); CREATININE 0.9 mg/dL (0.6-1.3); GLUCOSE 378 mg/dL (74-106); MAGNESIUM 1.7 mg/dL (1.8-2.4); POTASSIUM 4.1 mmol/L (3.5-5.1); SODIUM SERUM 141 mmol/L (136-145); TOTAL BILIRUBIN 0.3 mg/dL (0.0-1.0); TOTAL PROTEIN, SERUM 7.7 g/dL (6.4-8.2); UREA NITROGEN, BLOOD 14 mg/dL (7-18)
[2023-06-15] MEDS ORDERED: methylPREDNISolone SS 40 MG in WATER STERILE 1 ML IV SCH (09:00)
[2023-06-15] MEDS: MAG SULF 2000 MG/WATER PREMIX 50 ML IV PRN (11:04)
[2023-06-15] MEDS ORDERED: DEXTROSE 50% 50 ML SYR IVP PRN (11:05)
[2023-06-15] MEDS: ALBUTEROL 0.083% 2.5 MG/3 ML NEBU INH SCH (11:34)
[2023-06-15] MEDS: INSULIN LISPRO SLIDING SCALE 100 UNITS/ML VIAL SUBQ PRN (11:42)
[2023-06-15] MEDS: BLOOD GLUCOSE MONITORING 1 DEV DEV FS SCH (11:42)
[2023-06-15] MEDS: AZITHROMYCIN IV SCH (21:30)
[2023-06-15] MEDS: NACL 0.9% IV SCH (21:30)
[2023-06-15] MEDS: AZITHROMYCIN 500 MG INJ VIAL IV ONE (21:30)
[2023-06-16] VITALS (11 sets, daily range): BP systolic 118–148; BP diastolic 62–81; PULSE 70–113; RESP 16–20; TEMP 97.8–98.4; O2SAT 91–99
[2023-06-16] MEDS: INSULIN LANTUS 100 UNITS/ML 10 ML VIAL SUBQ SCH (00:05)
[2023-06-16 06:14] LABS: HEMATOCRIT 36.3 % (36-48); HEMOGLOBIN 12.3 g/dL (12.0-16.0); MEAN CORPUSCULAR HEMOGLOBIN 30 pg (27-31); MEAN CORPUSCULAR HGB CONC 34 g/dL (33-37); MEAN CORPUSCULAR VOLUME 89.4 fL (80-94); PLATELET COUNT (AUTO) 309 K/uL (140-450); RED BLOOD CELL COUNT(AUTO) 4.07 MIL/uL (4.20-5.40); RED CELL DISTRIBUTION WIDTH 13.7 % (11.6-13.7); WHITE BLOOD COUNT (AUTO) 15.7 K/uL (4.8-10.8)
[2023-06-16] MEDS: POLYETHYLENE GLYCOL 17 GM/PKT PO PRN (06:41)
[2023-06-16 07:18] LABS: ALANINE AMINOTRANSFERASE 43 U/L (12-78); ALBUMIN 2.4 g/dL (3.4-5.0); ALKALINE PHOSPHATASE 160 U/L (50-136); ANION GAP 9.9 (8-16); ASPARTATE AMINOTRANSFERASE 23 U/L (15-37); CALCIUM 9.3 mg/dL (8.5-10.1); CARBON DIOXIDE 29.9 mmol/L (21-32); CHLORIDE 102 mmol/L (98-107); CREATININE 0.7 mg/dL (0.6-1.3); GLUCOSE 356 mg/dL (74-106); MAGNESIUM 1.9 mg/dL (1.8-2.4); PHOSPHORUS 3.5 mg/dL (2.5-4.9); POTASSIUM 3.8 mmol/L (3.5-5.1); SODIUM SERUM 138 mmol/L (136-145); TOTAL BILIRUBIN 0.3 mg/dL (0.0-1.0); TOTAL PROTEIN, SERUM 6.5 g/dL (6.4-8.2); UREA NITROGEN, BLOOD 15 mg/dL (7-18)
[2023-06-16 08:26] LABS: BASOPHILS % (MANUAL) 0 % (0-2); BLASTS, MANUAL % 0 % (0-0); EOSINOPHILS % (MANUAL) 0 % (0-4); LYMPHOCYTES % (MANUAL) 20 % (20-46); METAMYELOCYTES % 0 % (0-0); MONOCYTES % (MANUAL) 4 % (5-12); MYELOCYTES % 0 % (0-0); OTHER CELLS,MANUAL % 0 (0-0); PLASMA CELLS 0; PLATELET ESTIMATE ADEQUATE; PROMYELOCYTES % 0 % (0-0); SMUDGE CELLS 0
[2023-06-16] MEDS: predniSONE 20 MG TAB PO SCH (09:28)
[2023-06-16] MEDS: HYDROcodone/APAP 5/325 MG 1 TAB TAB PO PRN (09:29)
[2023-06-16] MEDS ORDERED: LACT1CAP63 PO (14:28)
[2023-06-16] MEDS ORDERED: METF-346 PO (14:28)
[2023-06-16] MEDS ORDERED: LEVO750T75 PO (14:28)
[2023-06-16] MEDS ORDERED: PRED20TA5 PO (14:28)
[2023-06-16] MEDS ORDERED: CHOL1STR MC (14:34)
[2023-06-16] MEDS ORDERED: BLOO1EAC40 MC (14:34)
[2023-06-16] MEDS ORDERED: LANC-886 TP (14:34)
[2023-06-16] MEDS: ALBUTEROL SULFATE/IPRATROPIU 3 ML SOL IH SCH (16:25)
[2023-06-16] MEDS ORDERED: GLIP5TER PO (17:19)
== END 2023-06-16 18:25 | disposition home or self-care (01) | DRG 720 ==
LOC: MED 14:11 → MTU 17:37
PROVIDERS: ADMIT Family Medicine; ATTEND Family Medicine
DX: A41.9 Sepsis, unspecified organism (principal); J96.01 Acute respiratory failure with hypoxia; E44.0 Moderate protein-calorie malnutrition; J18.9 Pneumonia, unspecified organism; J45.901 Unspecified asthma with (acute) exacerbation; T38.0X5A Adverse effect of glucocorticoids and synthetic analogues, initial encounter; E11.65 Type 2 diabetes mellitus with hyperglycemia; Z20.822 Contact with and (suspected) exposure to COVID-19; Z79.899 Other long term (current) drug therapy; Y92.89 Other specified places as the place of occurrence of the external cause; Z68.33 Body mass index [BMI] 33.0-33.9, adult
CPT/HCPCS: 36415; 71045; 80048; 80053; 80076; 81001; 82550; 82948; 83036; 83605; 83735; 83880; 84100; 84484; 85025; 87040; 87081; 87086; 93005; 94640; 96365; 96367; 96375; 97116; 97163-GP; 99291; J0456; J0696; J1644; J1815; J2920; J2930; J3475; J7030; J7060; J7512; J7613; J7644; Q0163